=== PATIENT | female | born 1950 | race Caucasian/White ===

== ENCOUNTER 2019-04-28 20:53 | Emergency (ER) | payer BC, MEDICARE ==
[2019-04-28] MEDS ORDERED: Lactated Ringers 1,000 ML IV ONE (21:42)
[2019-04-28] MEDS ORDERED: Sodium Chloride 0.9% 10 ML Syringe FLUSH PRN (21:42)
[2019-04-28] MEDS ORDERED: Ketorolac 30 MG/ML SDV IM ONE (21:42)
[2019-04-28] MEDS ORDERED: Ondansetron 4 MG/2 ML SDV IVPUSH ONE (21:42)
--- NOTE | 2019-04-28 21:44 | EDM.PDOC ---
ED HPI GENERAL MEDICAL PROBLEM - General Chief Complaint: General Stated Complaint: stomach pain Time Seen by Provider: 04/28/19 21:05 Source of Information: Reports: Patient, Family, RN Notes Reviewed History Limitations: Reports: No Limitations - History of Present Illness INITIAL COMMENTS - FREE TEXT/NARRATIVE: 68-year-old female presents emergency department today complaint of epigastric pain body aches and fever, she states all started this morning. 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: - Infectious Disease History Infectious Disease History: Reports: Chicken Pox, Mumps - Past Surgical History Female Surgical History: Reports: Section, Tubal Ligation Social & Family History - Tobacco Use Smoking Status *Q: Never Smoker - Caffeine Use Caffeine Use: Reports: None - Recreational Drug Use Recreational Drug Use: No ED ROS GENERAL - Review of Systems Review Of Systems: See Below Constitutional: Reports: Fever, Chills HEENT: Reports: No Symptoms Respiratory: Reports: No Symptoms Cardiovascular: Reports: No Symptoms GI/Abdominal: Reports: Abdominal Pain, Nausea Musculoskeletal: Reports: Muscle Pain, Muscle Stiffness Skin: Reports: No Symptoms. Denies: Rash Neurological: Reports: No Symptoms ED EXAM, GENERAL - Physical Exam Exam: See Below Free Text/Narrative:: General: Female, ill-appearing, alert and oriented x3 HEENT: head is atraumatic normocephalic, eyes pupils equal round reactive to light, sclera clear no conjunctivitis appreciated. Ears tympanic membranes blocked by cerumen on the right clear and schmidt on the left canals are clear. Nose no septal deviation, nares are clear, no blood present. Mouth mucosa is moist and pink no erythema or exudate noted in soft palate, tongue is midline uvula is midline, dentition is intact. Neck: Supple no thyromegaly no tracheal deviation. Nodes: Cervical nodes subclavicular nodes nontender no palpable lymphadenopathy noted. Lungs: clear to auscultation bilaterally with symmetrical respirations, no adventitious noise appreciated. CV: Regular rate and rhythm S1 and S2 appreciated no murmurs rubs or gallops noted. Abdomen: Soft, nontender, no palpable masses or organomegaly appreciated, no distention no guarding bowel sounds are present, Neuro: GCS 15 Skin: Warm and dry, intact Extremities: No lower extremity edema appreciated, pedal pulse is +2. Course - Vital Signs Last Recorded V/S: Last Vital Signs Temp 99.8 F 04/28/19 21:29 Pulse 99 04/28/19 21:29 Resp 16 04/28/19 21:29 BP 149/100 H 04/28/19 21:29 Pulse Ox 96 04/28/19 21:29 - Orders/Labs/Meds Orders: Active Orders 24 hr Category Date Time Status Peripheral IV Care [RC] . DIRECTED Care 04/28/19 21:42 Active UA W/MICROSCOPIC [URIN] Stat Lab 04/28/19 23:12 Received Doxycycline [Vibramycin] 100 mg Med 04/28/19 22:38 Active Sodium Chloride 0.9% [Normal Saline] 100 ml IV ONETIME Sodium Chloride 0.9% [Saline Flush] Med 04/28/19 21:42 Active 10 ml FLUSH ASDIRECTED PRN Peripheral IV Insertion Adult [OM.PC] Urgent Oth 04/28/19 21:41 Ordered Medication Orders Doxycycline Hyclate 100 mg/ (Sodium Chloride) 100 mls @ 100 mls/hr IV ONETIME ONE Stop: 04/28/19 23:37 Last Admin: 04/28/19 23:22 Dose: 100 mls/hr Sodium Chloride (Saline Flush) 10 ml FLUSH ASDIRECTED PRN PRN Reason: Keep Vein Open Last Admin: 04/28/19 21:47 Dose: 10 ml Labs: Laboratory Tests 04/28/19 04/28/19 04/28/19 Range/Units 21:52 21:52 21:52 WBC 3.3 L (4.5-11.0) K/uL RBC 4.53 (3.30-5.50) M/uL Hgb 14.0 (12.0-15.0) g/dL Hct 41.4 (36.0-48.0) % MCV 91 (80-98) fL MCH 31 (27-31) pg MCHC 34 (32-36) % Plt Count 162 (150-400) K/uL Neut % (Auto) 81 H (36-66) % Lymph % (Auto) 13 L (24-44) % King % (Auto) 6 (2-6) % Eos % (Auto) 0 L (2-4) % Baso % (Auto) 0 (0-1) % Sodium 138 L (140-148) mmol/L Potassium 3.9 (3.6-5.2) mmol/L Chloride 101 (100-108) mmol/L Carbon Dioxide 24 (21-32) mmol/L Anion Gap 16.9 H (5.0-14.0) mmol/L BUN 18 (7-18) mg/dL Creatinine 1.0 (0.6-1.0) mg/dL Est Cr Clr Drug Dosing 38.68 mL/min Estimated GFR (MDRD) 55 L (>60) Glucose 134 H (74-106) mg/dL Lactic Acid 1.3 (0.4-2.0) mmol/L Calcium 9.2 (8.5-10.1) mg/dL Total Bilirubin 0.5 (0.2-1.0) mg/dL AST 31 (15-37) U/L ALT 47 (12-78) U/L Alkaline Phosphatase 90 (46-116) U/L Lactate Dehydrogenase 220 (82-234) U/L Troponin I (0.000-0.056) ng/mL Total Protein 7.7 (6.4-8.2) g/dL Albumin 3.9 (3.4-5.0) g/dL Globulin 3.8 H (2.3-3.5) g/dL Albumin/Globulin Ratio 1.0 L (1.2-2.2) 04/28/19 Range/Units 21:52 WBC (4.5-11.0) K/uL RBC (3.30-5.50) M/uL Hgb (12.0-15.0) g/dL Hct (36.0-48.0) % MCV (80-98) fL MCH (27-31) pg MCHC (32-36) % Plt Count (150-400) K/uL Neut % (Auto) (36-66) % Lymph % (Auto) (24-44) % King % (Auto) (2-6) % Eos % (Auto) (2-4) % Baso % (Auto) (0-1) % Sodium (140-148) mmol/L Potassium (3.6-5.2) mmol/L Chloride (100-108) mmol/L Carbon Dioxide (21-32) mmol/L Anion Gap (5.0-14.0) mmol/L BUN (7-18) mg/dL Creatinine (0.6-1.0) mg/dL Est Cr Clr Drug Dosing mL/min Estimated GFR (MDRD) (>60) Glucose (74-106) mg/dL Lactic Acid (0.4-2.0) mmol/L Calcium (8.5-10.1) mg/dL Total Bilirubin (0.2-1.0) mg/dL AST (15-37) U/L ALT (12-78) U/L Alkaline Phosphatase (46-116) U/L Lactate Dehydrogenase (82-234) U/L Troponin I < 0.017 (0.000-0.056) ng/mL Total Protein (6.4-8.2) g/dL Albumin (3.4-5.0) g/dL Globulin (2.3-3.5) g/dL Albumin/Globulin Ratio (1.2-2.2) Meds: Medications Generic Name Dose Route Start Last Admin Trade Name Freq PRN Reason Stop Dose Admin Doxycycline Hyclate 100 mg/ 100 mls @ 100 mls/hr 04/28/19 22:38 04/28/19 23: 22 Sodium Chloride IV 04/28/19 23:37 100 mls/hr ONETIME ONE Administration Sodium Chloride 10 ml 04/28/19 21:42 04/28/19 21:47 Saline Flush FLUSH 10 ml ASDIRECTED PRN Administration Keep Vein Open Discontinued Medications Generic Name Dose Route Start Last Admin Trade Name Freq PRN Reason Stop Dose Admin Lactated Ringer's 1,000 mls @ 999 mls/hr 04/28/19 21:42 04/28/19 21:48 Ringers, Lactated IV 04/28/19 22:42 999 mls/hr BOLUS ONE Administration Ketorolac Tromethamine 30 mg 04/28/19 21:42 04/28/19 21:47 Toradol IM 04/28/19 21:43 30 mg ONETIME ONE Administration Ondansetron HCl 4 mg 04/28/19 21:42 04/28/19 21:47 Zofran IVPUSH 04/28/19 21:43 4 mg ONETIME ONE Administration Departure - Departure Time of Disposition: 23:31 Disposition: Home, Self-Care 01 Condition: Fair Clinical Impression: Tick bite Qualifiers: Encounter type: initial encounter Qualified Code(s): W57.XXXA - Bitten or stung by nonvenomous insect and other nonvenomous arthropods, initial encounter - Discharge Information Instructions: Tick Bite Information, Adult, [id number] Referrals: PCP,None [Primary Care Provider] - Forms: ED Department Discharge Additional Instructions: Take full course of antibiotics, use Advil as needed for body aches, Please followup with your primary care provider in 3-5 days if not better, please call return to the emergency department with worsening of symptoms. - My Orders Last 24 Hours: My Active Orders 04/28/19 21:41 Peripheral IV Insertion Adult [OM.PC] Urgent 04/28/19 21:42 Peripheral IV Care [RC] . DIRECTED Sodium Chloride 0.9% [Saline Flush] 10 ml FLUSH ASDIRECTED PRN 04/28/19 22:38 Doxycycline [Vibramycin] 100 mg Sodium Chloride 0.9% [Normal Saline] 100 ml IV ONETIME 04/28/19 23:12 UA W/MICROSCOPIC [URIN] Stat - Assessment/Plan Last 24 Hours: My Active Orders 04/28/19 21:41 Peripheral IV Insertion Adult [OM.PC] Urgent 04/28/19 21:42 Peripheral IV Care [RC] . DIRECTED Sodium Chloride 0.9% [Saline Flush] 10 ml FLUSH ASDIRECTED PRN 04/28/19 22:38 Doxycycline [Vibramycin] 100 mg Sodium Chloride 0.9% [Normal Saline] 100 ml IV ONETIME 04/28/19 23:12 UA W/MICROSCOPIC [URIN] Stat Plan: Assessment Acuity = acute Site and laterality = tick bite Etiology = Ixodes scapularis Manifestations = body aches, fever Location of injury = Home Lab values = [WBC low at 3.3 consistent leukopenia lactic acid normal 1.3 LDH normal 220 troponin was negative Plan Suspicious for underlying tickborne illness given IV antibiotics of doxycycline 100 mg IV while in ED, prescription written for doxycycline 100 mg by mouth twice a day 14 days Tylenol or Motrin as needed for pain control follow-up primary care 3-5 days if not better This note was dictated using ed[employer]SE voice recognition software please call with any questions on syntax or grammar.
[2019-04-28] MEDS ORDERED: Doxycycline 100 MG in Sodium Chloride 0.9% 100 ML IV ONE (22:38)
== END 2019-04-29 01:40 | disposition home or self-care (01) ==
LOC: JP.ED 20:53
DX: T14.8XXA Other injury of unspecified body region, initial encounter (principal); W57.XXXA Bitten or stung by nonvenomous insect and other nonvenomous arthropods, initial encounter
CPT/HCPCS: 36415; 80053; 81001; 83605; 83615; 84484; 85025; 96361; 96365; 96372; 96375; 99283; J1885; J2405; J3490; J7030; J7120

== ENCOUNTER 2019-10-23 17:33 | Emergency (ER) | payer MEDICARE ==
[2019-10-23] MEDS ORDERED: Lidocaine 2% Viscous Solution 15 ML Cup PO ONE (18:59)
--- NOTE | 2019-10-23 19:03 | EDM.PDOC ---
ED HPI GENERAL MEDICAL PROBLEM - General Chief Complaint: Respiratory Problem Stated Complaint: SORE THROAT, CHEST PAIN,CHILLS Time Seen by Provider: 10/23/19 18:20 Source of Information: Reports: Patient, Family History Limitations: Reports: No Limitations - History of Present Illness INITIAL COMMENTS - FREE TEXT/NARRATIVE: 68-year-old female who has had a cough, sore throat for the past 3 days with intermittent fevers. Her voice is now gone, the cough is very hoarse. She does not have significant shortness of breath. Her had a bad cold the week before. 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 Denies: Shortness of Breath GI/Abdominal: Reports: Decreased Appetite. Denies: Nausea, Vomiting Skin: Reports: No Symptoms Neurological: Denies: Headache ED EXAM, GENERAL - Physical Exam Exam: See Below Exam Limited By: No Limitations General Appearance: Alert, No Apparent Distress Eye Exam: Bilateral Eye: Normal Inspection Throat/Mouth: Other (Mild pharyngeal erythema, no exudate) Head: Atraumatic Neck: No: Lymphadenopathy (R), Lymphadenopathy (L) Respiratory/Chest: No Respiratory Distress, Lungs Clear Neurological: Alert, Oriented Psychiatric: Normal Affect, Normal Mood Course - Vital Signs Last Recorded V/S: Last Vital Signs Temp 100.3 F 10/23/19 18:11 Pulse 89 10/23/19 19:04 Resp 16 10/23/19 19:04 BP 136/103 H 10/23/19 19:04 Pulse Ox 95 10/23/19 19:04 - Orders/Labs/Meds Orders: Active Orders 24 hr Category Date Time Status CULTURE STREP A CONFIRMATION [RM] Routine Lab 10/23/19 18:27 Results STREP SCRN A RAPID W CULT CONF [RM] Routine Lab 10/23/19 18:27 Results Meds: Medications Discontinued Medications Generic Name Dose Route Start Last Admin Trade Name [place] PRN Reason Stop Dose Admin Lidocaine HCl 15 ml 10/23/19 18:59 10/23/19 19:05 Xylocaine 2% Viscous PO 10/23/19 19:00 15 ml ONETIME ONE Administration Methylprednisolone Sodium Succinate 125 mg 10/23/19 19:14 10/23/19 19:30 Solu-Medrol IM 10/23/19 19:15 125 mg ONETIME ONE Administration - Re-Assessments/Exams Free Text/Narrative Re-Assessment/Exam: 10/23/19 19:01 A rapid strep was obtained which was negative. Explained to the patient that she has a viral illness that should run its course. She was given 15 cc of viscous lidocaine to mix with a liquid antacid to swallow every 6 hours for pain control over the next 24 hours. She can recheck in 2 days if not improving. 10/23/19 19:16 Patient took the 15 cc of lidocaine prior to discharge and had good relief, so was given a prescription for 100 cc to fill tomorrow. We also gave her 125 mg of IM Solu-Medrol to hopefully hasten the resolve of the viral symptoms including laryngitis. Departure - Departure Time of Disposition: 19:35 Disposition: Home, Self-Care 01 Clinical Impression: Viral laryngitis, Viral URI with cough - Discharge Information Instructions: Viral Respiratory Infection, [id number] Referrals: Shila Way PA-C [Primary Care Provider] - Forms: ED Department Discharge Care Plan Goals: Rest, fluids, anti-inflammatories such as ibuprofen or naproxen may be helpful. Use 1 teaspoon of numbing medicine for your throat every 6-8 hours, mixed with juice or liquid antacid would be helpful. Recheck in 2 to 3 days if not improving satisfactorily, or return anytime if worsening such as difficulty breathing. Sepsis Event Note - Evaluation Sepsis Screening Result: No Definite Risk - Focused Exam Vital Signs: Vital Signs Temp Pulse Resp BP Pulse Ox 10/23/19 19:04 89 16 136/103 H 95 10/23/19 18:11 100.3 F 91 16 150/93 H 97 10/23/19 17:49 100.3 F 91 16 150/93 H 97 Date Exam was Performed: 10/23/19 Time Exam was Performed: 22:26 - My Orders Last 24 Hours: My Active Orders 10/23/19 18:27 CULTURE STREP A CONFIRMATION [RM] Routine STREP SCRN A RAPID W CULT CONF [] Routine - Assessment/Plan Last 24 Hours: My Active Orders 10/23/19 18:27 CULTURE STREP A CONFIRMATION [RM] Routine STREP SCRN A RAPID W CULT CONF [] Routine
[2019-10-23] MEDS ORDERED: methylPREDNISolone Sodium Succinate 125 MG/2 ML SDV IM ONE (19:14)
== END 2019-10-23 19:42 | disposition home or self-care (01) ==
LOC: JP.ED 17:33
DX: J04.0 Acute laryngitis (principal); Z88.8 Allergy status to other drugs, medicaments and biological substances
CPT/HCPCS: 87081; 87880; 96372; 99283; A9270; J2930

== ENCOUNTER 2023-02-19 23:42 | Emergency (ER) | payer MEDICARE ==
[2023-02-20] MEDS ORDERED: Ondansetron 4 MG/2 ML SDV IVPUSH ONE (00:02)
[2023-02-20] MEDS ORDERED: Lactated Ringers 1,000 ML IV ONE (00:02)
[2023-02-20] MEDS ORDERED: Sodium Chloride 0.9% 10 ML Syringe FLUSH PRN (00:02)
[2023-02-20 00:41] LABS: CORONAVIRUS COVID-19 NAA NEGATIVE (NEGATIVE)
[2023-02-20 00:45] LABS: ESTIMATED GFR 53 mL/min (>60)
== END 2023-02-20 01:22 | disposition home or self-care (01) ==
LOC: JP.ED 23:42
DX: R11.2 Nausea with vomiting, unspecified (principal); Z88.4 Allergy status to anesthetic agent; Z88.8 Allergy status to other drugs, medicaments and biological substances; Z20.822 Contact with and (suspected) exposure to COVID-19
CPT/HCPCS: 0241U; 36415; 80053; 83605; 85025; 96361; 96374; 99284; J2405; J3490; J7120; 99283

== ENCOUNTER 2023-11-30 13:09 | Emergency (ER) | payer MEDICARE | END 2023-11-30 14:51 | disposition home or self-care (01) | LOC: JP.ED 13:09 | DX: A08.4 Viral intestinal infection, unspecified (principal); Z88.8 Allergy status to other drugs, medicaments and biological substances; Z79.899 Other long term (current) drug therapy | CPT/HCPCS: 99283 ==

== ENCOUNTER 2023-12-02 16:44 | Emergency (ER) | payer MEDICARE ==
[2023-12-02] MEDS ORDERED: Sodium Chloride 0.9% 1,000 ML IV ONE (18:39)
[2023-12-02 18:51] LABS: BASOPHILS PERCENT AUTO 0.3 % (0.1-1.3); EOSINOPHILS PERCENT AUTO 0.3 % (0.0-5.4); HEMATOCRIT 39.6 % (34.3-46.0); HEMOGLOBIN 13.6 g/dL (11.2-15.5); IMMATURE GRAN PERCENT AUTO 0.3 % (0.0-0.7); LYMPHOCYTES ABSOLUTE AUTO 0.96 K/uL (0.8-3.3); LYMPHOCYTES PERCENT AUTO 24.4 % (11.4-47.7); MEAN CORPUSCULAR HEMOGLOBIN 30.9 pg (31.6-35.5); MEAN CORPUSCULAR HGB CONC 34.3 g/dL (31.6-35.5); MONOCYTES ABSOLUTE AUTO 0.56 K/uL (0.20-0.90); MONOCYTES PERCENT AUTO 14.2 % (3.3-12.6); NEUTROPHILS ABSOLUTE AUTO 2.38 K/uL (1.0-7.6); NEUTROPHILS PERCENT AUTO 60.5 % (40.0-78.1); PLATELET COUNT,PLT 152 K/uL (130-375); WHITE BLOOD CELL COUNT,WBC 3.9 K/uL (3.2-11.0)
[2023-12-02 18:58] LABS: BASOPHILS ABSOLUTE AUTO 0.01 K/uL (0.00-0.10); EOSINOPHILS ABSOLUTE AUTO 0.01 K/uL (0.00-0.40); IMMATURE GRAN ABSOLUTE AUTO 0.01 K/uL (0.00-0.23)
[2023-12-02 19:13] LABS: A/G RATIO 0.9 (1.2-2.2); ALANINE AMINOTRANSFERASE,ALT 33 U/L (12-78); ALBUMIN 3.4 g/dL (3.4-5.0); ALKALINE PHOSPHATASE 64 U/L (46-116); ANION GAP 13.5 mmol/L (5.0-14.0); ASPARTATE AMNIOTRANSFERASE,AST 25 U/L (15-37); BILIRUBIN TOTAL 0.4 mg/dL (0.2-1.0); BLOOD UREA NITROGEN,BUN 28 mg/dL (7-18); C-REACTIVE PROTEIN 3.37 mg/dL (<0.50); CALCIUM 8.1 mg/dL (8.5-10.1); CARBON DIOXIDE,CO2 28 mmol/L (21-32); CHLORIDE,CL 97 mmol/L (100-108); CREATININE 1.3 mg/dL (0.6-1.0); EST CRCL DRUG DOSING (CG) 27.68 mL/min; ESTIMATED GFR 43 mL/min (>60); GLUCOSE RANDOM 100 mg/dL (74-106); POTASSIUM,K 3.5 mmol/L (3.6-5.2); SODIUM,NA 135 mmol/L (140-148)
[2023-12-02 20:46] LABS: APPEARANCE,URINE CLOUDY (CLEAR); BILIRUBIN,URINE NEGATIVE (NEGATIVE); COLOR,URINE YELLOW (YELLOW); GLUCOSE,URINE NEGATIVE (NEGATIVE); KETONES,URINE 40 mg/dL (NEGATIVE); LEUKOCYTE ESTERASE,URINE SMALL (NEGATIVE); NITRITE,URINE POSITIVE (NEGATIVE); OCCULT BLOOD,URINE TRACE-INTACT (NEGATIVE); PROTEIN,URINE 30 mg/dL (NEGATIVE); UROBILINOGEN,URINE 0.2 EU/dL (0.2-1.0)
[2023-12-02 20:52] LABS: AMORPHOUS SEDIMENT,URINE NOT SEEN; BACTERIA,URINE MANY; EPITHELIAL CELLS,URINE RARE; MUCUS,URINE RARE; RBC,URINE 0-5 (0-5); WBC,URINE 20-30 (0-5)
[2023-12-02] MEDS ORDERED: Ketorolac 15 MG/ML SDV IVPUSH ONE (21:26)
[2023-12-02] MEDS ORDERED: Ciprofloxacin 500 MG Tab PO ONE (21:26)
[2023-12-02] MEDS ORDERED: Phenazopyridine 95 MG Tab PO ONE (21:30)
[2023-12-02] MEDS ORDERED: Metoprolol Tartrate 5 MG/5 ML SDV IVPUSH ONE (22:38)
[2023-12-02] MEDS ORDERED: Metoprolol Tartrate 5 MG/5 ML SDV ONE (22:39)
[2023-12-02] MEDS ORDERED: Metoprolol Tartrate 25 MG Tab PO ONE (22:58)
== END 2023-12-03 01:00 | disposition home or self-care (01) ==
LOC: JP.ED 16:44
DX: N39.0 Urinary tract infection, site not specified (principal); B96.89 Other specified bacterial agents as the cause of diseases classified elsewhere; E86.0 Dehydration; E87.1 Hypo-osmolality and hyponatremia; K76.0 Fatty (change of) liver, not elsewhere classified; K80.20 Calculus of gallbladder without cholecystitis without obstruction; I48.91 Unspecified atrial fibrillation; Z88.4 Allergy status to anesthetic agent; Z88.8 Allergy status to other drugs, medicaments and biological substances
CPT/HCPCS: 36415; 74176; 80053; 81001; 83605; 83690; 84484; 85025; 86140; 93005; 96361; 96374; 96375; 99284; A9270; J1885; J3490; J7030; 93010

== ENCOUNTER 2025-03-26 07:55 | Day surgery (SDC) | payer MEDICARE ==
[2025-03-26] MEDS: Lactated Ringers 1,000 ML IV SCH (08:18)
[2025-03-26] MEDS ORDERED: fentaNYL 50 MCG/ML SDV ONE (08:38)
[2025-03-26] MEDS ORDERED: Propofol 200 MG/20 ML SDV ONE (08:38)
== END 2025-03-26 11:35 | disposition home or self-care (01) ==
LOC: JP.SDS 07:55
PROVIDERS: ATTEND Surgery
DX: Z12.11 Encounter for screening for malignant neoplasm of colon (principal); E78.5 Hyperlipidemia, unspecified
CPT/HCPCS: 00812; 45380; J2704; J3010; J7120